=== PATIENT | male | born 1980 | race Caucasian/White ===

== ENCOUNTER → 2016-06-28 | Outpatient (CLI) | payer BC ==
[2016-06-28 15:27] LABS: CHLORIDE,CL 106 mmol/L (98-110); SODIUM,NA 142 mmol/L (136-146)
== END ==
LOC: MW.CHRC 14:38
PROVIDERS: ATTEND Family Medicine
DX: R68.82 Decreased libido (principal); N52.9 Male erectile dysfunction, unspecified; R53.83 Other fatigue
CPT/HCPCS: 36415; 80053; 83036; 84402; 84403; 84443; 85025

== ENCOUNTER 2019-11-10 21:50 | Emergency (ER) | payer BC ==
[2019-11-10] MEDS ORDERED: Diphtheria,Pertussis(Acell),Tetanus Vaccine 0.5 ML Syringe IM ONE (22:06)
[2019-11-10] MEDS ORDERED: Bacitracin Oint 1 GM U/D Packet TOP ONE (22:06)
--- NOTE | 2019-11-10 22:13 | EDM.PDOC ---
ED HPI GENERAL MEDICAL PROBLEM - General Chief Complaint: Laceration Stated Complaint: DRYER CUT LEG Time Seen by Provider: 11/10/19 21:58 - History of Present Illness INITIAL COMMENTS - FREE TEXT/NARRATIVE: History of present illness: 20 minutes prior to arrival the patient was working behind his dryer when he moved the dryer the metal dryer hose framework caused a laceration to his right armstrong. Tetanus is not up-to-date bleeding is controlled no other injuries no other complaints nothing makes it better or worse Review of systems: As per history of present illness and below otherwise all systems reviewed and negative. Past medical history: As per history of present illness and as reviewed below otherwise noncontributory. Surgical history: As per history of present illness and as reviewed below otherwise noncont ributory. Social history: No reported history of drug or alcohol abuse. Family history: As per history of present illness and as reviewed below otherwise noncontributory. Physical exam: HEENT: Atraumatic, normocephalic, pupils reactive, negative for conjunctival pallor or scleral icterus, mucous membranes moist, throat clear, neck supple, nontender, trachea midline. Lungs: Clear to auscultation, breath sounds equal bilaterally, chest nontender. Heart: S1S2, regular, negative for clicks, rubs, or JVD. Abdomen: Soft, nondistended, nontender. Negative for masses or hepatosplenomegaly. Negative for costovertebral tenderness. Pelvis: Stable nontender. Genitourinary: Deferred. Rectal: Deferred. Extremities: Atraumatic, negative for cords or calf pain. Neurovascular unremarkable. Is about a 15 cm laceration to the right armstrong bleeding controlled no foreign bodies Neuro: Awake, alert, oriented. Cranial nerves II through XII unremarkable. Cerebellum unremarkable. Motor and sensory unremarkable throughout. Exam nonfocal. Diagnostics: [] Therapeutics: [] Impression: Laceration [] Plan: Update tetanus irrigate and repair the wound [] Definitive disposition and diagnosis as appropriate pending reevaluation and review of above. right lower leg Pain Score (Numeric/FACES): 2 - Related Data Allergies Allergy/AdvReac Type Severity Reaction Status Date / Time No Known Allergies Allergy Verified 11/10/19 22:02 Home Meds: Home Meds . [No Known Home Meds] 11/10/19 [History] ED ROS GENERAL - Review of Systems Review Of Systems: See Below ED EXAM, SKIN/RASH Exam: See Below Course - Vital Signs Text/Narrative:: Procedure: The 15 cm laceration to the right anterior armstrong was anesthetized with 20 mils of 1% lidocaine was then irrigated copiously with normal saline explored no foreign bodies or structural injuries were noted it was partial- thickness irregular bleeding controlled 20 brandi were used to close the wound no complications patient tolerated procedure well Last Recorded V/S: Last Vital Signs Temp 36.1 C 11/10/19 22:00 Pulse 89 11/10/19 22:00 Resp 18 11/10/19 22:00 BP 140/88 11/10/19 22:00 Pulse Ox 98 11/10/19 22:00 - Orders/Labs/Meds Orders: Active Orders 24 hr Category Date Time Status Vaccines to be Administered [RC] PER UNIT ROUTINE Care 11/10/19 22:06 Active Meds: Medications Discontinued Medications Generic Name Dose Route Start Last Admin Trade Name Freq PRN Reason Stop Dose Admin Bacitracin 1 dose 11/10/19 22:06 11/10/19 22:19 Bacitracin Oint 1 Gm TOP 11/10/19 22:07 1 dose ONETIME ONE Administration Diphtheria/Tetanus/Acell Pertussis 0.5 ml 11/10/19 22:06 11/10/19 22:20 Adacel IM 11/10/19 22:07 0.5 ml .ONCE ONE Administration Lidocaine HCl 20 ml 11/10/19 22:06 11/10/19 22:20 Xylocaine-Mpf 1% INJECT 11/10/19 22:07 20 ml ONETIME ONE Administration Departure - Departure Time of Disposition: 22:40 Disposition: Home, Self-Care 01 Condition: Good Clinical Impression: Laceration of leg - Discharge Information *PRESCRIPTION DRUG MONITORING PROGRAM REVIEWED*: Not Applicable *COPY OF PRESCRIPTION DRUG MONITORING REPORT IN PATIENT MERVAT: Not Applicable Instructions: Laceration Care, Adult Referrals: PCP,None [Primary Care Provider] - Forms: ED Department Discharge Additional Instructions: The following information is given to patients seen in the emergency department who are being discharged to home. This information is to outline your options for follow-up care. We provide all patients seen in our emergency department with a follow-up referral. The need for follow-up, as well as the timing and circumstances, are variable depending upon the specifics of your emergency department visit. If you don't have a primary care physician on staff, we will provide you with a referral. We always advise you to contact your personal physician following an emergency department visit to inform them of the circumstance of the visit and for follow-up with them and/or the need for any referrals to a consulting specialist. The emergency department will also refer you to a specialist when appropriate. This referral assures that you have the opportunity for follow-up care with a specialist. All of these measure are taken in an effort to provide you with opti mal care, which includes your follow-up. Under all circumstances we always encourage you to contact your private physician who remains a resource for coordinating your care. When calling for follow-up care, please make the office aware that this follow-up is from your recent emergency room visit. If for any reason you are refused follow-up, please contact the [facility] Emergency Department at and asked to speak to the emergency department charge nurse. Follow-up in the emergency department in 10 days for staple removal if you experience pus swelling redness increased pain return immediately for a wound check. Sepsis Event Note (ED) - Evaluation Sepsis Screening Result: No Definite Risk - Focused Exam Vital Signs: Vital Signs Temp Pulse Resp BP Pulse Ox 11/10/19 22:00 36.1 C 89 18 140/88 98 - My Orders Last 24 Hours: My Active Orders 11/10/19 22:06 Vaccines to be Administered [RC] PER UNIT ROUTINE - Assessment/Plan Last 24 Hours: My Active Orders 11/10/19 22:06 Vaccines to be Administered [RC] PER UNIT ROUTINE
== END 2019-11-10 22:59 | disposition home or self-care (01) ==
LOC: MW.ED 21:50
DX: S81.811A Laceration without foreign body, right lower leg, initial encounter (principal); Z23 Encounter for immunization; W26.9XXA Contact with unspecified sharp object(s), initial encounter
CPT/HCPCS: 12005; 90471; 90715; 99282; J2001

== ENCOUNTER 2019-11-20 10:07 | Emergency (ER) | payer BC | END 2019-11-20 10:39 | disposition home or self-care (01) | LOC: MW.ED 10:07 | DX: S81.811D Laceration without foreign body, right lower leg, subsequent encounter (principal); X58.XXXD Exposure to other specified factors, subsequent encounter | CPT/HCPCS: 99281 ==